=== PATIENT | male | born 1950 | race Two or more races ===

== ENCOUNTER 2019-04-19 07:09 | Outpatient (CLI) | payer OTHER | END 2019-04-19 14:01 | disposition home or self-care (01) | LOC: NUCLEAR 07:09 | DX: R10.11 Right upper quadrant pain (principal) | CPT/HCPCS: 78227; A9537 ==

== ENCOUNTER 2019-06-08 04:40 | Day surgery (SDC) | payer OTHER ==
[~2019-06-08 04:40] MED LIST: GLIMEPIRIDE2 MG PO; LIPITOR20 MG PO
== END 2019-06-08 13:00 | disposition home or self-care (01) ==
LOC: CIR.AMB 04:40 → ADM 08:15 → EDSTATUS 08:15 → CIR.AMB 13:00
DX: K80.10 Calculus of gallbladder with chronic cholecystitis without obstruction (principal)